=== PATIENT | female | born 1985 | race Caucasian/White ===

== ENCOUNTER 2017-10-10 17:07 | Emergency (ER) | payer OTHER ==
[~2017-10-10] VITALS: Ht 160 cm; Wt 68.3 kg
[~2017-10-10 17:07] MED LIST: DEPO-PROVER150 MG/ML IM; ENDOCET 5-3251 EACH PO; LEXAPRO20 MG PO
[2017-10-10 17:17] VITALS: BP 116/88
== END 2017-10-10 18:00 | disposition left against medical advice (07) ==
LOC: EME 17:07
DX: S61.211A Laceration without foreign body of left index finger without damage to nail, initial encounter (principal); Z53.21 Procedure and treatment not carried out due to patient leaving prior to being seen by health care provider